=== PATIENT | female | born 1985 | race Hispanic/Latino ===

== ENCOUNTER 2024-10-04 02:14 | Emergency (ER) | payer SELFPAY ==
[~2024-10-04] VITALS: Ht 154.9 cm; Wt 110.2 kg
[2024-10-04 02:17] VITALS: TEMP 98.6
[2024-10-04 02:39] VITALS: BP 132/86; PULSE 97; RESP 18; O2SAT 99
[2024-10-04] MEDS ORDERED: CIPR7.5D7 OTIC (02:59)
--- NOTE | 2024-10-04 03:01 | ERN ---
ED Note History of Present Illness Stated Complaint: C/O BUG IN RT EAR Chief Complaint: Foreignbody Ear Time Seen by MD: 02:33 Time Seen by Midlevel: 02:33 Dictation: The patient is a 39-year-old female with no past medical history who presents to the emergency department with complaints of degroot to right ear onset prior to arrival. Patient reports she applied water prior to arrival which killed the bug in attempted to take it out but only took out partial. No other complaints. Past Medical History Past Medical History: No Pertinent History Surgical History: None LMP: Sep 29, 2024 RN Note Reviewed/Agreed w/PFSH: Yes Review of System Dictation Constitutional: Negative for fever,chills, and weight loss Eyes: Negative for injury, pain,redness, and discharge ENT: Negative for injury,pain or swelling. Positive for foreign body right ear Cardiovascular: Negative for chest pain, palpitations, and edema Respiratory: Negative for shortness of breath, cough, and wheezing, Abdomen/GI: Negative for abdominal pain, nausea, vomiting, diarrhea, and constipation Back: Negative for injury and pain : Negative for injury, bleeding and discharge MS/Extremity: Negative for injury and deformity Skin: Negative for rash, and discoloration Neuro: Negative for headache, weakness, numbness, tingling, and seizure Psych: Negative for suicide ideation, homicidal ideation, and hallucinations Initial Vital Sign VS Vital Signs Date Time Temp Pulse Resp B/P (MAP) Pulse Ox O2 Delivery O2 Flow Rate FiO2 10/04/24 02:17 98.6 94 18 137/84 96 Room Air Physical Exam Dictation Vital Signs reviewed General Appearance: Alert, oriented x 3, no acute distress, well developed, nourished. Head and Face: non-traumatic. Eyes: PERRL, pink conjunctivas, eyelid no trauma, anterior chamber with arcus senilis. Ears: Pinnas intact and no signs of trauma or erythema ear canals clear and no discharge TM no erythema . Insect noted to right ear Nose: No discharge, no bleeding. Oropharynx: Mouth normal, tongue pink. pharynx clear,no erythema, tonsils no exudates, no abscesses noted, mucous membrane moist Neck: Supple, non-tender, no thyromegaly, no masses, no JVD, no bruits Breast:Deferred Chest:No tenderness, no crepitus, no paradoxical movement, no retractions Lungs:Clear, well-ventilated, symmetric, no rales, no wheezing, no rhonchi, no stridor, good breath sounds bilaterally Heart: Regular rate, regular rhythm, no murmur, no gallops Vascular: no peripheral edema, Abdomen: Soft, positive bowel sounds, nondistended, no guarding, nontender, no rebound, no masses no hepatomegaly, no splenomegaly, no Soto's sign, no hernias. Rectal: Deferred Genital: Deferred Neurological: Normal speech, motor function intact, sensory function intact Musculoskeletal: Neck nontender, full range of motion, back nontender, full range of motion, Extremities: nontender, full range of motion Skin: Color pink, dry, no turgor, no rash, no lacerations, no abrasions, no contusions. Lymphatic: Deferred Results (Laboratory/Radiology) Labs Reviewed?: Yes ED Course ED Course Vital Signs Date Time Temp Pulse Resp B/P (MAP) Pulse Ox O2 Delivery O2 Flow Rate FiO2 10/04/24 02:17 98.6 94 18 137/84 96 Room Air Medical Decision Making MDM The patient is a 39-year-old female with no past medical history who presents to the emergency department with complaints of degroot to right ear onset prior to arrival. Patient reports she applied water prior to arrival which killed the bug in attempted to take it out but only took out partial. No other complaints. Foreign body was removed. Only half of the bug was in the ear. Other half was probably removed prior to arrival. Tympanic membrane intact. Ear was irrigated. Patient instructed to follow up with PCP. Differential diagnosis: Otitis media, otitis externa, foreign body ear. Need for hospitalization: Patient does not meet criteria for hospitalization. There are no social concerns with this patient. DX & DISP Disposition: Discharge Departure Impression: Primary Impression: Foreign body of ear, right Condition: Stable Scripts Ciprofloxacin HCl/Dexameth (Ciproflox-Dexameth Otic Susp) 0.3 %-0.1 % Drops.susp 4 DROP OTIC BID for 7 Days, #7.5 ML 0 Refills Prov: NANDO CHIRINOS BENEFIT DIRECTOR 10/04/24 Additional Instructions: FOLLOW-UP WITH PRIMARY CARE PROVIDER IN 1 TO 2 DAYS. TAKE MEDICATIONS DIRECTED HERE IN THE EMERGENCY ROOM. OKAY TO CONTINUE HOME MEDICATIONS UNLESS OTHERWISE DISCUSSED DURING YOUR VISIT IN THE EMERGENCY ROOM TODAY. RETURN TO YOUR NEAREST EMERGENCY ROOM IF SYMPTOMS WORSEN OR IF THERE IS NO IMPROVEMENT. CALL 911 IF YOU NEED IMMEDIATE ASSISTANCE. TAKE TYLENOL OR MOTRIN [id number] NEEDED AND IF NO CONTRAINDICATIONS ARE PRESENT. INCREASE ORAL HYDRATION. A WOUND CULTURE OR URINE CULTURE WAS ORDERED HERE IN THE EMERGENCY ROOM DEPARTMENT PLEASE FOLLOW-UP WITH PRIMARY CARE PROVIDER AND ADVISE THEM TO GET REPEAT PORTS FROM OUR FACILITY. IF YOU HAD ANY ABDI WRAP/SPLINTS THAT WERE APPLIED HERE, PLEASE DO NOT REMOVE THEM UNTIL YOU SEE YOUR PRIMARY CARE OR SPECIALTY. Referrals: SELF,REFERRAL (PCP) Time of Disposition: 03:01 I have reviewed the case, and I agree with, Diagnosis and Plan NANDO CHIRINOS BENEFIT DIRECTOR Oct 04, 2024 03:01
[2024-10-04] MEDS: ibuPROFEN 800 MG TAB PO ONE (03:12)
== END 2024-10-04 03:18 | disposition home or self-care (01) ==
LOC: EDH 02:14
DX: T16.1XXA Foreign body in right ear, initial encounter (principal); W44.F4XA Insect entering into or through a natural orifice, initial encounter; Y93.89 Activity, other specified; Y92.89 Other specified places as the place of occurrence of the external cause; Y99.8 Other external cause status